=== PATIENT | female | born 1985 | race Two or more races ===

== ENCOUNTER 2018-04-13 05:06 | Day surgery (SDC) | payer OTHER ==
[2018-04-13] MEDS ORDERED: ANESTHESIA TRAY IN PYXIS 1 EA TRAY MC ONE (06:04)
[2018-04-13] MEDS ORDERED: LIDOCAINE HCL/PF 1% 30 ML SDV ONE (06:04)
[2018-04-13] MEDS ORDERED: MIDAZOLAM HCL 2 MG/2ML VIAL ONE (06:38)
[2018-04-13] MEDS ORDERED: FENTANYL PF 100MCG/2ML AMPUL ONE (08:19)
[2018-04-13] MEDS ORDERED: HYDROMORPHONE 1 MG/1 ML DISP.SYRIN ONE (08:45)
[2018-04-13] MEDS ORDERED: HYDROCODONE/APAP 5/325MG 1 EACH TABLET ONE (08:53)
== END 2018-04-13 10:05 | disposition home or self-care (01) ==
LOC: DS 05:06
PROVIDERS: ATTEND Specialist
DX: M24.131 Other articular cartilage disorders, right wrist (principal); M65.841 Other synovitis and tenosynovitis, right hand; M94.231 Chondromalacia, right wrist
CPT/HCPCS: 29846; 84703; 88304; 88311; A4217; A6253; A6402 ×2; J0690; J1100; J1170; J1885; J2250; J2405; J2704; J3010; J3490 ×2

== ENCOUNTER 2018-04-18 20:02 | Inpatient (IN) | payer OTHER ==
[~2018-04-18] VITALS: Ht 162.6 cm; Wt 80.3 kg
--- NOTE | 2018-04-18 20:15 | NUR ---
PT BIB SELF, C/O RUE PAIN, S/P SX 04/13, ADVICED SURGEON TO COME IN TO ER, ASSESSED VS STABLE, PLACED ON ER BED 3, SEEN AND EVAL DONE BY DR CHILDS.
[2018-04-18] MEDS ORDERED: MORPHINE SULFATE INJ 2 MG/ML DISP.SYRIN IM ONE (21:00)
[2018-04-18] MEDS ORDERED: ONDANSETRON 4 MG TAB.RAPDIS SL ONE (21:00)
--- NOTE | 2018-04-18 21:00 | NUR ---
MEDS ORDERED AND GIVEN.
[2018-04-18] MEDS ORDERED: MORPHINE SULFATE INJ 4 MG/ML DISP.SYRIN ONE (21:03)
[2018-04-18] MEDS ORDERED: ONDANSETRON 4 MG TAB.RAPDIS ONE (21:04)
--- NOTE | 2018-04-18 22:25 | NUR ---
CT [facility] PULMONARY ORDERED, SL INSERTED LAC# 18 G PLACED.
[2018-04-18 22:34] LABS: BASOPHILS # (AUTO) 0.1 /CMM (0.0-0.2); BASOPHILS % (AUTO) 0.6 % (0.0-2.0); EOSINOPHILS % (AUTO) 1.8 % (0.0-6.0); HEMATOCRIT 40 % (33-45); HEMOGLOBIN 13.5 g/dL (11.5-14.8); LYMPHOCYTES # (AUTO) 3.8 /CMM (0.8-4.8); LYMPHOCYTES % (AUTO) 46.7 % (20.0-44.0); MEAN CORPUSCULAR HGB CONC 34 g/dl (31.0-36.0); MEAN CORPUSCULAR VOLUME 82 fL (82-100); MONOCYTES # (AUTO) 0.3 /CMM (0.1-1.30); MONOCYTES % (AUTO) 4.2 % (2.0-12.0); NEUTROPHILS # (AUTO) 3.8 /CMM (1.8-8.9); NEUTROPHILS % (AUTO) 46.7 % (43.0-81.0); PLATELET COUNT (AUTO) 377 /CMM (150-450); RED BLOOD CELL COUNT(AUTO) 4.84 MIL/uL (4.0-5.2); WHITE BLOOD COUNT (AUTO) 8.1 K/uL (4.3-11.0)
[2018-04-18 22:42] LABS: CREATININE 0.7 mg/dL (0.6-1.3); POTASSIUM 4.5 mmol/L (3.5-5.1)
[2018-04-18 22:48] LABS: ALBUMIN 3.8 g/dL (3.4-5.0); BILIRUBIN,TOTAL 0.2 mg/dL (0.2-1.0); TOTAL PROTEIN, SERUM 7.4 g/dL (6.4-8.2)
[2018-04-18] MEDS ORDERED: CT SWABBABLE VALVE TRANS SET 1 EA INFUS.SET MC ONE (22:48)
[2018-04-18] MEDS ORDERED: IOHEXOL-350 100 ML VIAL IV ONE ×2 (22:48→23:05)
[2018-04-18] MEDS ORDERED: IV NS 0.9% 250 ML IV ONE (22:49)
--- NOTE | 2018-04-18 22:50 | NUR ---
DUPLEX RT SHOULDER DONE.
--- NOTE | 2018-04-18 23:00 | NUR ---
TAKEN TO CT PULMONARY.
--- NOTE | 2018-04-19 00:04 | NUR ---
TELE BED 316-2, PER NURSING SUP.
[2018-04-19] MEDS ORDERED: ZOLPIDEM TARTRATE 5 MG TABLET PO PRN (01:00)
[2018-04-19] MEDS ORDERED: MAG HYDROX/AL HYDROX/SIMETH 30 ML UDC PO PRN (01:00)
[2018-04-19] MEDS ORDERED: MAGNESIUM HYDROXIDE 30 ML UDC PO PRN (01:00)
[2018-04-19] MEDS ORDERED: ACETAMINOPHEN 325 MG TABLET PO PRN (01:00)
[2018-04-19] MEDS ORDERED: Z GUARD REMEDY 2 OZ OINT TP PRN (01:00)
[2018-04-19 01:24] VITALS: BP 115/71
[2018-04-19 01:27] VITALS: BP 115/71
--- NOTE | 2018-04-19 01:27 | NUR ---
TELE/MS LEAD QA ANALYST NOTE PT ARRIVED TO UNIT IN STABLE CONDITION. PT IS A/O X4, AFEBRILE, [place] SPEAKING. RESPIRATIONS ARE EVEN AND UNLABORED WITH NO S/S OF ACUTE DISTRESS OR SOB NOTED. IV SITE TO LAC G18 INTACT AND PATENT WITH NO INFILTRATION NOTED. PT ON TELE MONITOR @ SINUS 64. SKIN INTACT. SAFETY MEASURES ARE IN PLACE. INSTRUCTED PT TO USE CALL LIGHT WHEN ASSISTANCE IS NEEDED. CALL LIGHT WITHIN REACH. WILL CONTINUE TO MONITOR.
--- NOTE | 2018-04-19 01:31 | NUR ---
REPORT CALLED GIVEN TO KATHLEEN HENDERSON ADMITTING, DR FAM ENTERED ORDERS, GOING TO RM 323-1.
[2018-04-19] MEDS ORDERED: ENOXAPARIN SODIUM 80 MG/0.8 ML DISP.SYRIN SQ ONE (02:00)
[2018-04-19] MEDS: ONDANSETRON HCL/PF 4 MG/2 ML VIAL IVP PRN ×2 (02:24→09:06)
[2018-04-19] MEDS: HYDROCODONE/APAP 5/325MG 1 EACH TABLET PO PRN ×2 (02:25→08:58)
[2018-04-19 04:00] VITALS: BP 129/75
--- NOTE | 2018-04-19 07:10 | NUR ---
TELE/MS RN NOTE PT IN BED SLEEPING IN STABLE CONDITION. PT IS A/O X4, AFEBRILE, AND TUR[place] SPEAKING. RESPIRATIONS ARE EVEN AND UNLABORED WITH NO S/S OF ACUTE DISTRESS OR SOB NOTED. IV SITE LAC G18 INTACT AND PATENT WITH NO INFILTRATION NOTED. PT ON TELE MONITOR @ SINUS 64. SAFETY MEASURES ARE IN PLACE. CALL LIGHT WITHIN REACH. WILL ENDORSE TO ONCOMING NURSE FOR CONTINUATION OF CARE.
[2018-04-19 08:00] VITALS: BP 126/75
--- NOTE | 2018-04-19 08:00 | NUR ---
rn notes Received patient in the bred a/o x4 Turkmen speaker female. Patient on tele monitor SR-[id number], room air. patient has no acute respiratory distress. V/s taken stable. patient was complaining of pain on right arm 6/10 on pain scale. patient has stitches on right wrist intact, no redness. encouraged patient to keep elevated for edema using pillow. Patient using bathroom, no acute distress, call light within to reach, safety precaution maintained all the time.
[2018-04-19 08:01] VITALS: BP 126/75
[2018-04-19 08:09] LABS: CALCIUM, SERUM 8.6 mg/dL (8.5-10.1); CREATININE 0.7 mg/dL (0.6-1.3); MAGNESIUM 1.9 mg/dL (1.8-2.4); PHOSPHORUS 3.8 mg/dL (2.5-4.9); POTASSIUM 3.6 mmol/L (3.5-5.1)
[2018-04-19 08:22] LABS: BASOPHILS % (AUTO) 0.5 % (0.0-2.0); HEMATOCRIT 37 % (33-45); HEMOGLOBIN 12.7 g/dL (11.5-14.8); LYMPHOCYTES # (AUTO) 4.1 /CMM (0.8-4.8); LYMPHOCYTES % (AUTO) 54.9 % (20.0-44.0); MEAN CORPUSCULAR HGB CONC 35 g/dl (31.0-36.0); MEAN CORPUSCULAR VOLUME 81 fL (82-100); MONOCYTES # (AUTO) 0.3 /CMM (0.1-1.30); MONOCYTES % (AUTO) 4.5 % (2.0-12.0); NEUTROPHILS # (AUTO) 2.9 /CMM (1.8-8.9); NEUTROPHILS % (AUTO) 38.1 % (43.0-81.0); PLATELET COUNT (AUTO) 347 /CMM (150-450); RED BLOOD CELL COUNT(AUTO) 4.51 MIL/uL (4.0-5.2); WHITE BLOOD COUNT (AUTO) 7.6 K/uL (4.3-11.0)
--- NOTE | 2018-04-19 08:58 | NUR ---
rn notes administered narco 5/325 mg po prn for right arm pain 07/27 per patient request, v/s taken bp -126/75, p-72, continued monitoring.
[2018-04-19] MEDS ORDERED: HYDR-3980 PO (09:04)
--- NOTE | 2018-04-19 09:06 | NUR ---
rn notes administered Zofran 4 mg/ml iv push for nausea per patient request.
--- NOTE | 2018-04-19 09:57 | NUR ---
rn notes Per Md. Gomez patient going to discharge home. Patient will follow after discharge and take anticoagulant as prescribed. Medication were administered for nausea, and pain effective, continued monitoring.
[2018-04-19] MEDS ORDERED: ENOXAPARIN SODIUM 80 MG/0.8 ML DISP.SYRIN SQ SCH (14:00)
--- NOTE | 2018-04-19 14:45 | NUR ---
Discharge Notes Patient discharge at this time going home. Patient stable, v/s stable, no acute respiratory distress, refused pain at this time. Med reconciliation and discharge order reviewed and explained to patient and family members. Patient verbalized understanding. Prescription handed to the patient. Belonging with the patient. patient will follow surgeon Dr. Johnson, and keep elevated right arm. Escorted patient to the lobby for safety. Patient brass pickler by family member name Audrey phone #[phone].
== END 2018-04-19 14:45 | disposition home or self-care (01) | DRG 301 ==
LOC: ER 20:04 → TELE 04-19 00:28
PROVIDERS: ADMIT Internal Medicine; ATTEND Internal Medicine
DX: I82.621 Acute embolism and thrombosis of deep veins of right upper extremity (principal); I82.611 Acute embolism and thrombosis of superficial veins of right upper extremity; Z98.890 Other specified postprocedural states; E78.1 Pure hyperglyceridemia
CPT/HCPCS: 36415; 71045-TC; 80048-TC; 80053-TC; 80061-TC; 83735-TC; 84100-TC; 84484-TC; 85025-TC; 85610-TC; 85730-TC; 87081-TC; 93971-TC; A6402; G0378; J1650; J2270; J2405; J7050; Q0162; Q9967